=== PATIENT | female | born 1965 | race Caucasian/White ===

== ENCOUNTER 2016-11-10 13:22 | Outpatient (CLI) | payer BC ==
[2015-09-04 01:09] VITALS: BP 99/58
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
== END 2016-11-10 13:25 ==
LOC: RAD 13:22
PROVIDERS: ATTEND Physician Assistant
DX: S99.922A Unspecified injury of left foot, initial encounter (principal); X58.XXXA Exposure to other specified factors, initial encounter; Y93.9 Activity, unspecified; Y99.9 Unspecified external cause status
CPT/HCPCS: 73630

== ENCOUNTER 2017-12-07 23:48 | Observation (INO) | payer BC ==
[2017-12-08] MEDS ORDERED: ONDANSETRON HCL/PF 4 MG/ 2ML VIAL IVP ONE (00:26)
[2017-12-08] MEDS ORDERED: 0.9 % SODIUM CHLORIDE 1,000 ML IV ONE (00:28)
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
[2017-12-08 00:49] LABS: BASOPHILS % 0.5 (0.0-1.5); MEAN CORPUSCULAR HEMOGLOBIN 31.9 pg (28.0-34.0); MEAN CORPUSCULAR VOLUME 91.2 fl (80.0-100.0); MONOCYTES % 4.8 % (0.0-11.0)
[2017-12-08 01:20] LABS: eGFR (African) > 60; eGFR (Non-African) > 60
[2017-12-08] MEDS ORDERED: IBUPROFEN 200 MG TABLET PO ONE ×2 (02:17→02:20)
[2017-12-08] MEDS: 0.9 % SODIUM CHLORIDE 1,000 ML IV SCH ×2 (04:00→08:10)
[2017-12-08 04:42] VITALS: BMI 20.6
[2017-12-08] MEDS ORDERED: IBUPROFEN 400 MG TABLET PO PRN (06:24)
[2017-12-08 08:12] VITALS: BP 119/63
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
[2017-12-09 01:01] LABS: APPEARANCE,URINE CLEAR (CLEAR); COLOR,URINE YELLOW (YELLOW); OCCULT BLOOD,URINE TR (NEGATIVE); PH URINE 5.5 (5.0 - 8.0)
[2017-12-09 01:02] LABS: CANNABINOIDS NEGATIVE ng/mL (< 50); METHYLENEDIOXYMETHAMPHETAMINE NEGATIVE ng/mL (<500)
[2017-12-09 01:02] LABS: UROBILINOGEN URINE 0.2 Eu (0.2-1.0)
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
== END 2017-12-08 09:30 | disposition home or self-care (01) ==
LOC: ED 23:48 → SOUTH 23:50 → UNDOADMOB 12-08 02:12 → SOUTH 12-08 02:12 → UNDODISOB 12-08 09:30
PROVIDERS: ADMIT Family Medicine; ATTEND Family Medicine
DX: S00.83XA Contusion of other part of head, initial encounter (principal); F10.129 Alcohol abuse with intoxication, unspecified; Y90.1 Blood alcohol level of 20-39 mg/100 ml; X58.XXXA Exposure to other specified factors, initial encounter; Y93.89 Activity, other specified; Y92.34 Swimming pool (public) as the place of occurrence of the external cause; Y99.9 Unspecified external cause status
CPT/HCPCS: 70450; 72125; 80053; 80320; 80377; 81002; 84703; 85025; G0378; J2405; J7030; 96365; 96366; 96375; 99217; 99284; G0480; G0481; S1016

== ENCOUNTER 2018-08-23 07:03 | Emergency (ER) | payer BC ==
[2018-08-23 07:18] VITALS: BP 135/77
--- NOTE | 2018-08-23 08:12 | ED Physician Documentation ---
Lower Extremity Injury - HISTORIAN Historian: patient - HPI Stated Complaint: tripped over dog and twisted left ankle Chief Complaint: Lower Extremity Problem Onset: minutes Where: home Severity: moderate Context: fall, twist Associated Symptoms:: swelling Modifying Factors:: pain on movement (left ankle) - ROS CONST: no problems CVS/RESP: none GI/: denies: nausea, vomiting MS/SKIN/LYMPH: none NEURO: denies: headache, head injury, anxiety, depression - PAST HX Past History: none Allergies/Adverse Reactions: Allergies Allergy/AdvReac Type Severity Reaction Status Date / Time nut - unspecified [nut] Allergy Severe Anaphylaxis Verified 08/23/18 07:25 fruit Allergy Severe Anaphylaxis Uncoded 08/23/18 07:25 Home Medications: Ambulatory Orders Medication Instructions Recorded Ibuprofen [Motrin Ib] 400 - 600 mg PO QID PRN #50 tablet 12/08/17 - SOCIAL HX Smoking History: non-smoker - FAMILY HX Family History: denies: none - VITAL SIGNS Vital Signs: Vital Signs Temp Pulse Resp BP Pulse Ox 98.1 F 69 20 135/77 99 08/23/18 07:14 08/23/18 07:14 08/23/18 07:14 08/23/18 07:14 08/23/18 07:14 - REVIEWED ASSESSMENTS Nursing Assessment Reviewed: Yes Vitals Reviewed: Yes ED Results Lab/Radiology - Radiology Radiology Impressions: Three views left ankle Clinical history: Fall this morning. Lateral pain. Findings: Examination of the left ankle in AP, lateral and oblique views fails to demonstrate evidence of fracture, dislocation or other bone or joint pathology. Electronically signed on Aug 23, 2018 7:56:21 AM CDT by: Ole Adame - Orders Orders: ED Orders Category Date Time Status Anjel Wrap Affected Extremity 1T Care 08/23/18 08:12 Active LEFT ANKLE [ANKLE 3 VIEWS OR MORE] [RAD] Stat Exams 08/23/18 Taken Lower Extremities Injury Phy - Physical Exam General Appearance: mild distress Hips: bilateral hip: non-tender, normal inspection, normal range of motion, no evidence of injury Legs: bilateral: non-tender, normal inspection, normal range of motion, no evidence of injury Knees: bilateral: non-tender, normal inspection, normal range of motion, no evidence of injury Ankle: right: limited range of motion, pain, soft tissue tenderness, left: non- tender, normal inspection, normal range of motion Foot: bilateral foot: non-tender, normal inspection, normal range of motion, no evidence of injury Gait: limited by pain Neuro/Vascular/Tendon: no vascular compromise, motor nml, sensation nml, ROM nml Resp/CVS: no resp. distress, reg. rate & rhythm Discharge Clincal Impression: Left ankle sprain Referrals: Primary Doctor,No [Primary Care Provider] - 2 Days Additional Instructions: Ice Rest Elevation - above the level of your heart. If you are unable to bear weight and continuing to have significant pain on day 3-4; see your PCP for re-evaluation and additional xrays. Pain Control: Decreasing the swelling will decrease your pain You may use Tylenol every 4hour as needed for pain. Limit your dose to less than 4 G per day. Alternate with Ibuprofen 600-800mg three times a day with food as needed. Do not take for more than 5 days in a row. Ankle Exercises - 5 times a day A-Z 1-20 Condition: Stable Disposition: 01 HOME, SELF-CARE Decision to Admit: NO Decision Time: 08:10
--- NOTE | 2018-08-23 13:10 | Diagnostic Imaging Report ---
<p>Your browser does not support ifMind Pal[employer].</p> RENATE TURCIOS [place] [id number] [facility].[address] [address] Report Submission Date: Aug 23, 2018 7:56:21 AM CDT Patient Study Name: CAROLE MONZON Date: Aug 23, 2018 7:17:43 AM CDT Modality Type: DX Gender: F Description: ANKLE 3 VIEWS OR MORE : 65 Institution: [facility] Physician: RENATE TURCIOS Three views left ankle Clinical history: Fall this morning. Lateral pain. Findings: Examination of the left ankle in AP, lateral and oblique views fails to demonstrate evidence of fracture, dislocation or other bone or joint pathology. Electronically signed on Aug 23, 2018 7:56:21 AM CDT by: Ole DOMÍNGUEZ
== END 2018-08-23 08:27 | disposition home or self-care (01) ==
LOC: ED 07:03
DX: S93.402A Sprain of unspecified ligament of left ankle, initial encounter (principal); W01.0XXA Fall on same level from slipping, tripping and stumbling without subsequent striking against object, initial encounter; Y93.9 Activity, unspecified; Y92.009 Unspecified place in unspecified non-institutional (private) residence as the place of occurrence of the external cause
CPT/HCPCS: 73610; 99282; 99283